=== PATIENT | female | born 1970 | race Two or more races ===

== ENCOUNTER 2017-01-26 15:40 | Inpatient (IN) | payer OTHER ==
[~2017-01-26] VITALS: Ht 157.5 cm; Wt 68.7 kg
[~2017-01-26 15:40] MED LIST: ASPI-496 PO; MECL-76 PO; OMEP-110 PO; RAMI2.5C PO; SULF1TAB24 PO
[2017-01-26 16:22] LABS: HEMATOCRIT 42.8 % (34.6-47.8); HEMOGLOBIN 14.7 g/dL (11.7-16.4); WHITE BLOOD COUNT 12.7 x10^3/uL (3.4-10)
[2017-01-26] MEDS ORDERED: SODIUM CHLORIDE 0.9% 1,000ML IVBOLUS ONE ×2 (16:30→19:00)
[2017-01-26] MEDS ORDERED: SODIUM CHLORIDE FLUSH 10ML SYR IVF ONE (16:30)
[2017-01-26] MEDS ORDERED: ONDANSETRON 2MG/ML, 2ML IVPush ONE (16:30)
[2017-01-26] MEDS ORDERED: MORPHINE SULFATE 4 MG/ML, 1ML IVPush PRN ×2 (16:30→19:00)
[2017-01-26 16:31] LABS: ASPARTATE AMINO TRANSFERASE 22 U/L (15-37); BLOOD UREA NITROGEN 10 mg/dL (7-18)
[2017-01-26] MEDS ORDERED: ONDANSETRON 2MG/ML, 2ML ONE (17:31)
[2017-01-26] MEDS ORDERED: MORPHINE SULFATE 4 MG/ML, 1ML ONE (17:31)
[2017-01-26] MEDS ORDERED: OMNIPAQUE 350 MG/ML, 100ML BOTTLE ONE (18:00)
[2017-01-26] MEDS ORDERED: SODIUM CHLORIDE 0.9% 1,000 ML IV ONE (18:47)
[2017-01-26] MEDS ORDERED: SODIUM CHLORIDE FLUSH 10ML SYR IVF PRN (19:00)
[2017-01-26] MEDS ORDERED: CIPROFLOXACIN/PMX 400MG/200ML 200 ML IV ONE (19:00)
[2017-01-26] MEDS: METRONIDAZOLE PMX 500MG/100ML 100 ML IVPB ONE ×2 (19:00→20:05)
[2017-01-26] MEDS ORDERED: ONDANSETRON 2MG/ML, 2ML IVPush PRN (19:00)
[2017-01-26] MEDS ORDERED: CIPROFLOXACIN/PMX 400MG/200ML 200 ML ONE (19:30)
[2017-01-26] MEDS ORDERED: METRONIDAZOLE PMX 500MG/100ML 100 ML ONE (19:30)
[2017-01-26 20:57] VITALS: BP 129/76
[2017-01-26] MEDS ORDERED: PROMETHAZINE 25 MG/ML, 1ML IM PRN (21:00)
[2017-01-26] MEDS: METRONIDAZOLE PMX 500MG/100ML 100 ML IV SCH (21:00)
[2017-01-26] MEDS: ENOXAPARIN 40 MG/0.4 ML SQ SCH (21:00)
[2017-01-26] MEDS: SODIUM CHLORIDE 0.9% 1,000 ML IV SCH (21:44)
[2017-01-26] MEDS: CEFTRIAXONE PMX 1GM/50ML 50 ML IV SCH (23:35)
[2017-01-27 01:28] VITALS: BP 103/63
[2017-01-27 04:32] LABS: BLOOD UREA NITROGEN 7 mg/dL (7-18)
[2017-01-27 04:36] LABS: ASPARTATE AMINO TRANSFERASE 14 U/L (15-37); HEMOGLOBIN 12.7 g/dL (11.7-16.4); WHITE BLOOD COUNT 11.4 x10^3/uL (3.4-10)
[2017-01-27] MEDS: SODIUM CHLORIDE 0.9% 1,000 ML IV SCH ×2 (06:05→09:56)
[2017-01-27] MEDS: METRONIDAZOLE PMX 500MG/100ML 100 ML IV SCH ×3 (06:05→21:24)
[2017-01-27 08:38] VITALS: BP 108/69
[2017-01-27] MEDS: D5%-0.9% NACL+KCL 20MEQ 1,000 ML IV SCH ×2 (12:30→20:30)
[2017-01-27 14:00] VITALS: BP 104/63
[2017-01-27] MEDS: morphine SULFATE 10 MG/ML, 1ML IVPush PRN ×2 (14:44→21:24)
[2017-01-27 18:45] VITALS: BP 115/67
[2017-01-27] MEDS: ENOXAPARIN 40 MG/0.4 ML SQ SCH (20:45)
[2017-01-27] MEDS: CEFTRIAXONE PMX 1GM/50ML 50 ML IV SCH (22:47)
[2017-01-28] MEDS: D5%-0.9% NACL+KCL 20MEQ 1,000 ML IV SCH ×2 (00:41→11:19)
[2017-01-28] MEDS: ONDANSETRON 2MG/ML, 2ML IVPush PRN (00:47)
[2017-01-28 02:10] VITALS: BP 114/73
[2017-01-28 04:30] LABS: HEMATOCRIT 37.8 % (34.6-47.8); HEMOGLOBIN 12.9 g/dL (11.7-16.4); WHITE BLOOD COUNT 9.1 x10^3/uL (3.4-10)
[2017-01-28 04:37] LABS: BLOOD UREA NITROGEN 5 mg/dL (7-18)
[2017-01-28] MEDS: METRONIDAZOLE PMX 500MG/100ML 100 ML IV SCH ×2 (05:55→17:51)
[2017-01-28 07:10] VITALS: BP 94/56
[2017-01-28] MEDS: morphine SULFATE 10 MG/ML, 1ML IVPush PRN (10:38)
[2017-01-28 16:37] VITALS: BP 139/77
[2017-01-28] MEDS: POTASSIUM PHOSPHATE 22 MEQ in SODIUM CHLORIDE 0.9% 500 ML IV ONE ×2 (17:49→21:45)
[2017-01-28] MEDS: HYDROmorphone 1 MG/ML, 1ML IV PRN ×2 (17:50→21:46)
[2017-01-28 18:06] VITALS: BP 143/77
[2017-01-28 18:45] LABS: IS PT STATUS REG ER OR PRE ER? NO
[2017-01-28] MEDS: ENOXAPARIN 40 MG/0.4 ML SQ SCH (21:46)
[2017-01-28] MEDS: CEFTRIAXONE PMX 1GM/50ML 50 ML IV SCH (23:04)
[2017-01-29] MEDS: METRONIDAZOLE PMX 500MG/100ML 100 ML IV SCH ×3 (01:19→17:31)
[2017-01-29 02:44] VITALS: BP 102/60
[2017-01-29 08:45] VITALS: BP 110/75
[2017-01-29] MEDS: ONDANSETRON 2MG/ML, 2ML IVPush PRN ×2 (08:51→15:44)
[2017-01-29] MEDS ORDERED: D5%-0.9% NACL+KCL 20MEQ 1,000 ML IV SCH (12:30)
[2017-01-29 12:55] VITALS: BP 124/80
[2017-01-29 13:00] VITALS: BP 120/80
[2017-01-29 18:53] VITALS: BP 134/81
[2017-01-29] MEDS: ENOXAPARIN 40 MG/0.4 ML SQ SCH (20:39)
[2017-01-29] MEDS: CEFTRIAXONE PMX 1GM/50ML 50 ML IV SCH (23:21)
[2017-01-30] MEDS: METRONIDAZOLE PMX 500MG/100ML 100 ML IV SCH ×3 (01:24→17:18)
[2017-01-30 01:26] VITALS: BP 98/61
[2017-01-30 05:33] LABS: HEMOGLOBIN 13.9 g/dL (11.7-16.4)
[2017-01-30 05:38] LABS: BLOOD UREA NITROGEN 7 mg/dL (7-18)
[2017-01-30 08:28] VITALS: BP 122/70
[2017-01-30] MEDS ORDERED: POTASSIUM CHLORIDE 20 MEQ TAB.ER.PRT PO ONE (12:00)
[2017-01-30 13:44] VITALS: BP 119/78
[2017-01-30 19:59] VITALS: BP 123/78
[2017-01-30] MEDS: ENOXAPARIN 40 MG/0.4 ML SQ SCH (20:06)
[2017-01-30] MEDS: CEFTRIAXONE PMX 1GM/50ML 50 ML IV SCH (23:06)
[2017-01-31 01:15] VITALS: BP 103/62
[2017-01-31] MEDS: METRONIDAZOLE PMX 500MG/100ML 100 ML IV SCH ×2 (01:59→08:19)
[2017-01-31] MEDS ORDERED: CEFD300C37 PO (08:06)
[2017-01-31] MEDS ORDERED: METR500T PO (08:06)
== END 2017-01-31 10:00 | disposition home or self-care (01) | DRG 392 ==
LOC: ED 18:35 → EDIP 18:47 → 3NW 20:48 → 5SO 01-28 18:29 → DCLOUNGE 01-31 09:45
PROVIDERS: ADMIT Internal Medicine; ATTEND Hospitalist
DX: K57.32 Diverticulitis of large intestine without perforation or abscess without bleeding (principal); E87.2 Acidosis; I11.0 Hypertensive heart disease with heart failure; I42.9 Cardiomyopathy, unspecified; I50.22 Chronic systolic (congestive) heart failure; E87.6 Hypokalemia; F17.210 Nicotine dependence, cigarettes, uncomplicated; F41.9 Anxiety disorder, unspecified; H81.10 Benign paroxysmal vertigo, unspecified ear; Z90.710 Acquired absence of both cervix and uterus; Z90.722 Acquired absence of ovaries, bilateral
CPT/HCPCS: 36415; 74000; 74177; 80048; 80053; 81003; 83605; 83690; 83735; 84100; 84145; 84484; 84703; 85025; 87040; 93005; 96374; 96375; J0696; J0744; J1170; J1650; J2405; Q9967; J2270; J3480; J7030; J7040

== ENCOUNTER 2017-09-19 13:56 | Emergency (ER) | payer OTHER ==
[~2017-09-19] VITALS: Ht 152.4 cm; Wt 70.0 kg
[~2017-09-19 13:56] MED LIST changes: +CEFD300C37 PO; +METR500T PO
[2017-09-19 14:00] VITALS: BP 132/82
[2017-09-19] MEDS ORDERED: DIPH,PERTUSS(ACELL),TET VAC/PF 0.5 ML IM-VACC ONE ×2 (14:30→14:32)
[2017-09-19] MEDS ORDERED: BACITRACIN ZINC OINT 500U/GM, 0.9 GM ONE (15:28)
== END 2017-09-19 16:17 | disposition home or self-care (01) ==
LOC: ED 15:37
DX: S91.331A Puncture wound without foreign body, right foot, initial encounter (principal); W26.8XXA Contact with other sharp object(s), not elsewhere classified, initial encounter; Y93.89 Activity, other specified; Y92.89 Other specified places as the place of occurrence of the external cause; Y99.8 Other external cause status
CPT/HCPCS: 90471; 90715; 99284

== ENCOUNTER 2018-01-04 13:34 | Emergency (ER) | payer MEDICAID ==
[~2018-01-04] VITALS: Ht 157.5 cm; Wt 68.0 kg
[2018-01-04 13:36] VITALS: BP 152/91
[2018-01-04] MEDS ORDERED: DIAZEPAM 5 MG TABLET PO ONE (14:00)
[2018-01-04] MEDS ORDERED: KETOROLAC 30 MG/1 ML IM ONE (14:00)
[2018-01-04] MEDS ORDERED: DIAZEPAM 5 MG TABLET ONE (14:16)
[2018-01-04] MEDS ORDERED: KETOROLAC 30 MG/1 ML ONE (14:16)
== END 2018-01-04 15:58 | disposition home or self-care (01) ==
LOC: ED 15:52
DX: S16.1XXA Strain of muscle, fascia and tendon at neck level, initial encounter (principal); X58.XXXA Exposure to other specified factors, initial encounter; Y93.89 Activity, other specified; Y92.89 Other specified places as the place of occurrence of the external cause; Y99.8 Other external cause status; F17.200 Nicotine dependence, unspecified, uncomplicated; I10 Essential (primary) hypertension
CPT/HCPCS: 72125; 96372; 99284; J1885

== ENCOUNTER 2018-05-17 14:46 | Inpatient (IN) | payer OTHER ==
[~2018-05-17] VITALS: Ht 160 cm; Wt 68.0 kg
[~2018-05-17 14:46] MED LIST changes: -RAMI2.5C PO; +RAMI2.5C2 PO
--- NOTE | 2018-05-17 15:08 | NUR ---
PT IN XRAY
--- NOTE | 2018-05-17 15:23 | NUR ---
PT AMBULATED TO THE BATHROOM WITH STEADY GAIT
[2018-05-17 15:28] LABS: BASOPHILS # (AUTO) 0.03 x10^3/uL (0-0.1); BASOPHILS % (AUTO) 0 % (0-1); EOSINOPHILS # (AUTO) 0.18 x10^3/uL (0-0.4); EOSINOPHILS % (AUTO) 2 % (1-7); LYMPHOCYTES # (AUTO) 3.45 x10^3/uL (1-3.4); LYMPHOCYTES % (AUTO) 46 % (22-44); MD NO; MEAN CORPUSCULAR HEMOGLOBIN 31.7 pg (27.0-34.8); MEAN CORPUSCULAR HGB CONC 34.6 g/dL (32.4-35.8); MEAN CORPUSCULAR VOLUME 91.7 fL (80-100); MEAN PLATELET VOLUME 7.7 fL (7.4-10.4); MONOCYTES # (AUTO) 0.39 x10^3/uL (0.2-0.8); MONOCYTES % (AUTO) 5 % (2-9); NEUTROPHILS % (AUTO) 46 % (42-75); PLATELET COUNT 345 x10^3/uL (130-400); RED BLOOD COUNT 4.73 x10^6/uL (3.82-5.3); RED CELL DISTRIBUTION WIDTH 12.6 % (9.6-15.2)
[2018-05-17 15:41] LABS: ALANINE AMINOTRANSFERASE 39 U/L (12-78); ALBUMIN 3.7 g/dL (3.4-5.0); ANION GAP 5 mmol/L (5-15); CALCIUM 9.4 mg/dL (8.5-10.1); CHLORIDE 104 mmol/L (98-107); CREATININE 0.66 mg/dL (0.55-1.02)
[2018-05-17 15:46] LABS: ALKALINE PHOSPHATASE 119 U/L (45-117); BILIRUBIN,TOTAL 0.4 mg/dL (0.2-1.0); TOTAL PROTEIN 7.3 g/dL (6.4-8.2)
[2018-05-17 15:55] LABS: MICROSCOPIC NOT IND
--- NOTE | 2018-05-17 15:55 | NUR ---
pt's hr in the 40's, obtained ekg. dr hanson notified
[2018-05-17 16:05] LABS: CULTURE INDICATED? NO
[2018-05-17] MEDS ORDERED: KETOROLAC 30 MG/1 ML ONE (16:20)
[2018-05-17] MEDS ORDERED: KETOROLAC 30 MG/1 ML IVPush ONE (16:30)
--- NOTE | 2018-05-17 16:37 | NUR ---
pt medicated for pain
--- NOTE | 2018-05-17 16:45 | NUR ---
PT TO CT
[2018-05-17] MEDS ORDERED: OMNIPAQUE 350 MG/ML, 100ML BOTTLE ONE (16:57)
--- NOTE | 2018-05-17 17:03 | NUR ---
RECEIVED REPORT AND ASSUMED PT. CARE. PT. IS RESTING WITHOUT CONCERNS.
[2018-05-17] MEDS ORDERED: METRONIDAZOLE PMX 500MG/100ML 100 ML IVPB ONE (17:30)
[2018-05-17] MEDS ORDERED: CIPROFLOXACIN/PMX 400MG/200ML 100 ML IVPB ONE (17:30)
[2018-05-17] MEDS ORDERED: SODIUM CHLORIDE FLUSH 10ML SYR IVF PRN (18:00)
--- NOTE | 2018-05-17 18:12 | NUR ---
REPORT WAS CALLED TO ALBERT ROCHA. PT.'S IV ABX ARE INFUSING AT DEPART.
[2018-05-17] MEDS ORDERED: METRONIDAZOLE PMX 500MG/100ML 100 ML ONE (18:17)
[2018-05-17] MEDS ORDERED: CIPROFLOXACIN/PMX 400MG/200ML 200 ML ONE (18:17)
[2018-05-17 19:14] VITALS: BP 121/78
[2018-05-17] MEDS ORDERED: BISACODYL 10 MG SUPP PR PRN (20:30)
[2018-05-17] MEDS ORDERED: LIDODERM 5% PATCH TD PRN (20:30)
[2018-05-17] MEDS: OMEPRAZOLE 20 MG CAPSULE.DR PO SCH (21:33)
[2018-05-17] MEDS: KETOROLAC 30 MG/1 ML IV PRN (21:33)
[2018-05-17] MEDS: ENOXAPARIN 40 MG/0.4 ML SQ SCH (21:37)
[2018-05-17] MEDS: D5%-0.45% NACL 1,000 ML IV SCH (23:00)
[2018-05-18 02:27] VITALS: BP 113/68
[2018-05-18] MEDS: METRONIDAZOLE PMX 500MG/100ML 100 ML IV SCH ×3 (05:21→17:11)
[2018-05-18 06:55] VITALS: BP 92/53
[2018-05-18] MEDS: DOCUSATE 50 MG/5 ML, 10ML UDC PO SCH ×2 (09:31→20:44)
[2018-05-18] MEDS: ASPIRIN 81 MG TABLET CHEW PO SCH (09:31)
[2018-05-18] MEDS: RAMIPRIL 2.5 MG CAPSULE PO SCH (09:31)
[2018-05-18] MEDS: OMEPRAZOLE 20 MG CAPSULE.DR PO SCH ×2 (09:31→20:44)
[2018-05-18] MEDS: MAGNESIUM HYDROXIDE 8%, 30ML UDC PO SCH (09:32)
[2018-05-18] MEDS: CIPROFLOXACIN/PMX 400MG/200ML 200 ML IV SCH ×2 (09:37→20:45)
[2018-05-18] MEDS: D5%-0.45% NACL 1,000 ML IV SCH (09:41)
[2018-05-18] MEDS: ONDANSETRON 2MG/ML, 2ML IVPush PRN ×2 (12:18→20:44)
[2018-05-18 14:33] VITALS: BP 117/78
[2018-05-18] MEDS: KETOROLAC 30 MG/1 ML IV PRN (20:55)
[2018-05-18 21:06] VITALS: BP 142/70
[2018-05-18] MEDS: ENOXAPARIN 40 MG/0.4 ML SQ SCH (21:28)
[2018-05-18] MEDS ORDERED: PROMETHAZINE 25 MG/ML, 1ML IM ONE (22:00)
[2018-05-19] MEDS: METRONIDAZOLE PMX 500MG/100ML 100 ML IV SCH ×4 (00:47→19:17)
[2018-05-19 02:00] VITALS: BP 120/62
[2018-05-19 03:57] VITALS: BP 98/64
[2018-05-19 05:40] LABS: CHLORIDE 110 mmol/L (98-107)
[2018-05-19 05:48] LABS: ALANINE AMINOTRANSFERASE 36 U/L (12-78); ALKALINE PHOSPHATASE 86 U/L (45-117); ANION GAP 9 mmol/L (5-15); BILIRUBIN,TOTAL 0.6 mg/dL (0.2-1.0); CALCIUM 7.6 mg/dL (8.5-10.1); CREATININE 0.73 mg/dL (0.55-1.02); TOTAL PROTEIN 5.9 g/dL (6.4-8.2)
[2018-05-19 05:49] LABS: BASOPHILS # (AUTO) 0.04 x10^3/uL (0-0.1); BASOPHILS % (AUTO) 1 % (0-1); EOSINOPHILS # (AUTO) 0.21 x10^3/uL (0-0.4); EOSINOPHILS % (AUTO) 3 % (1-7); LYMPHOCYTES # (AUTO) 1.28 x10^3/uL (1-3.4); LYMPHOCYTES % (AUTO) 19 % (22-44); MD NO; MEAN CORPUSCULAR HEMOGLOBIN 31.4 pg (27.0-34.8); MEAN CORPUSCULAR HGB CONC 34.6 g/dL (32.4-35.8); MEAN CORPUSCULAR VOLUME 90.8 fL (80-100); MEAN PLATELET VOLUME 7.9 fL (7.4-10.4); MONOCYTES # (AUTO) 0.41 x10^3/uL (0.2-0.8); MONOCYTES % (AUTO) 6 % (2-9); NEUTROPHILS # (AUTO) 4.84 x10^3/uL (1.8-6.8); NEUTROPHILS % (AUTO) 71 % (42-75); PLATELET COUNT 282 x10^3/uL (130-400); RED BLOOD COUNT 4.33 x10^6/uL (3.82-5.3); RED CELL DISTRIBUTION WIDTH 12.6 % (9.6-15.2)
[2018-05-19 07:50] VITALS: BP 92/55
[2018-05-19] MEDS: CIPROFLOXACIN/PMX 400MG/200ML 200 ML IV SCH ×2 (08:24→20:34)
[2018-05-19] MEDS: DOCUSATE 50 MG/5 ML, 10ML UDC PO SCH ×2 (08:26→19:56)
[2018-05-19] MEDS: MAGNESIUM HYDROXIDE 8%, 30ML UDC PO SCH (08:26)
[2018-05-19] MEDS: ASPIRIN 81 MG TABLET CHEW PO SCH (08:26)
[2018-05-19] MEDS: D5%-0.45% NACL 1,000 ML IV SCH ×2 (08:26→19:18)
[2018-05-19] MEDS: OMEPRAZOLE 20 MG CAPSULE.DR PO SCH ×2 (08:26→19:56)
[2018-05-19] MEDS: RAMIPRIL 2.5 MG CAPSULE PO SCH (08:26)
[2018-05-19 12:59] VITALS: BP 124/83
[2018-05-19] MEDS: ONDANSETRON 2MG/ML, 2ML IVPush PRN (15:35)
[2018-05-19 19:07] VITALS: BP 116/74
[2018-05-19] MEDS: ENOXAPARIN 40 MG/0.4 ML SQ SCH (19:56)
[2018-05-20] MEDS: METRONIDAZOLE PMX 500MG/100ML 100 ML IV SCH ×3 (01:30→14:22)
[2018-05-20 02:13] VITALS: BP 104/64
[2018-05-20] MEDS: D5%-0.45% NACL 1,000 ML IV SCH (06:02)
[2018-05-20 07:05] VITALS: BP 107/68
[2018-05-20] MEDS: MAGNESIUM HYDROXIDE 8%, 30ML UDC PO SCH (09:00)
[2018-05-20] MEDS ORDERED: RAMIPRIL 2.5 MG CAPSULE PO SCH (09:00)
[2018-05-20] MEDS: CIPROFLOXACIN/PMX 400MG/200ML 200 ML IV SCH (09:18)
[2018-05-20] MEDS: ASPIRIN 81 MG TABLET CHEW PO SCH (09:19)
[2018-05-20] MEDS: OMEPRAZOLE 20 MG CAPSULE.DR PO SCH (09:19)
[2018-05-20] MEDS: DOCUSATE 50 MG/5 ML, 10ML UDC PO SCH (09:22)
[2018-05-20] MEDS ORDERED: METR-142 PO (14:42)
[2018-05-20] MEDS ORDERED: CIPR250T27 PO (14:42)
[2018-05-20 15:48] VITALS: BP 110/68
== END 2018-05-20 17:20 | disposition home or self-care (01) | DRG 389 ==
LOC: ED 18:24 → EDIP 18:45 → 3NE 18:53
PROVIDERS: ADMIT Hospitalist; ATTEND Hospitalist
DX: K56.0 Paralytic ileus (principal); K57.20 Diverticulitis of large intestine with perforation and abscess without bleeding; I50.22 Chronic systolic (congestive) heart failure; I42.9 Cardiomyopathy, unspecified; F17.210 Nicotine dependence, cigarettes, uncomplicated; H81.10 Benign paroxysmal vertigo, unspecified ear; R00.1 Bradycardia, unspecified; N83.202 Unspecified ovarian cyst, left side; F41.9 Anxiety disorder, unspecified; I11.0 Hypertensive heart disease with heart failure; Z90.710 Acquired absence of both cervix and uterus; Z82.49 Family history of ischemic heart disease and other diseases of the circulatory system; Z79.899 Other long term (current) drug therapy
CPT/HCPCS: 36415; 74021; 74177; 80053; 81003; 83690; 84703; 85025; 93005; 96365; 96375; G0378; J0744; J1650; J1885; J2405; J2550; Q9967

== ENCOUNTER 2019-05-22 00:18 | Observation (INO) | payer MEDICAID, OTHER ==
[~2019-05-22] VITALS: Ht 162.6 cm; Wt 69.8 kg
[~2019-05-22 00:18] MED LIST changes: +CIPR250T27 PO; +METR-90 PO
[2019-05-22 00:57] LABS: BASOPHILS # (AUTO) 0.09 x10^3/uL (0-0.1); BASOPHILS % (AUTO) 1 % (0-1); EOSINOPHILS # (AUTO) 0.15 x10^3/uL (0-0.4); EOSINOPHILS % (AUTO) 2 % (1-7); LYMPHOCYTES % (AUTO) 37 % (22-44); MD NO; MEAN CORPUSCULAR HEMOGLOBIN 31.7 pg (27.0-34.8); MEAN CORPUSCULAR HGB CONC 34.3 g/dL (32.4-35.8); MEAN CORPUSCULAR VOLUME 92.4 fL (80-100); MEAN PLATELET VOLUME 7.7 fL (7.4-10.4); MONOCYTES # (AUTO) 0.44 x10^3/uL (0.2-0.8); MONOCYTES % (AUTO) 5 % (2-9); NEUTROPHILS # (AUTO) 4.66 x10^3/uL (1.8-6.8); NEUTROPHILS % (AUTO) 55 % (42-75); PLATELET COUNT 344 x10^3/uL (130-400); RED BLOOD COUNT 4.55 x10^6/uL (3.82-5.3); RED CELL DISTRIBUTION WIDTH 13.2 % (9.6-15.2)
[2019-05-22] MEDS ORDERED: SODIUM CHLORIDE FLUSH 10ML SYR IVF ONE (01:00)
[2019-05-22] MEDS ORDERED: MORPHINE SULFATE 4 MG/ML, 1ML IVPush PRN (01:00)
[2019-05-22] MEDS ORDERED: ASPIRIN 81 MG TABLET CHEW PO ONE (01:00)
[2019-05-22] MEDS ORDERED: ONDANSETRON 2MG/ML, 2ML IVPush ONE (01:00)
[2019-05-22 01:11] LABS: ANION GAP 9 mmol/L (5-15); CALCIUM 8.4 mg/dL (8.5-10.1); CHLORIDE 107 mmol/L (98-107); CREATININE 0.96 mg/dL (0.55-1.02)
[2019-05-22 01:12] LABS: ALANINE AMINOTRANSFERASE 42 U/L (12-78); ALBUMIN 3.5 g/dL (3.4-5.0)
[2019-05-22 01:16] LABS: ALKALINE PHOSPHATASE 119 U/L (45-117); BILIRUBIN,TOTAL 0.3 mg/dL (0.2-1.0); TROPONIN I < 0.015 ng/mL (0.000-0.045)
[2019-05-22] MEDS ORDERED: MORPHINE SULFATE 4 MG/ML, 1ML ONE (01:20)
[2019-05-22] MEDS ORDERED: ONDANSETRON 2MG/ML, 2ML ONE (01:20)
[2019-05-22] MEDS ORDERED: ASPIRIN 81 MG TABLET CHEW ONE ×2 (01:20→01:22)
[2019-05-22] MEDS ORDERED: NITROGLYCERIN OINT 2%, 1GM TP ONE ×2 (01:39→02:00)
[2019-05-22] MEDS ORDERED: ACETAMINOPHEN 500 MG TABLET ONE (01:40)
[2019-05-22] MEDS ORDERED: ACETAMINOPHEN 500 MG TABLET PO ONE (02:00)
[2019-05-22] MEDS ORDERED: ACETAMINOPHEN 325 MG TABLET PO PRN (02:30)
[2019-05-22] MEDS ORDERED: OXYcodone IR 5MG TABLET PO PRN (02:30)
[2019-05-22] MEDS ORDERED: ONDANSETRON ODT 4 MG PO PRN (02:30)
[2019-05-22] MEDS ORDERED: DOCUSATE 100 MG CAPSULE PO PRN (02:30)
[2019-05-22] MEDS ORDERED: POTASSIUM CHLORIDE 20 MEQ TAB.ER.PRT PO ONE (02:30)
[2019-05-22] MEDS ORDERED: morphine SULFATE 10 MG/ML, 1ML IVPush PRN (02:30)
[2019-05-22] MEDS ORDERED: hydrALAzine 20 MG/ML, 1ML IVPush PRN (02:30)
[2019-05-22] MEDS ORDERED: BISACODYL 10 MG SUPP PR PRN (02:30)
[2019-05-22] MEDS ORDERED: POLYETHYLENE GLYCOL 17 GM PACKET PO PRN (02:30)
[2019-05-22] MEDS ORDERED: NITROGLYCERIN 0.4 MG BOTTLE (25 TABS) SL PRN (02:30)
[2019-05-22] MEDS ORDERED: PROMETHAZINE 25 MG/ML, 1ML IM PRN (02:30)
[2019-05-22] MEDS ORDERED: ONDANSETRON 2MG/ML, 2ML IVPush PRN (02:30)
[2019-05-22] MEDS: SODIUM CHLORIDE 0.9% 1,000 ML IV SCH ×2 (03:08→12:30)
[2019-05-22] MEDS: HEPARIN 5,000 UNITS/ML, 1ML SQ SCH ×2 (03:13→10:30)
[2019-05-22 03:26] VITALS: BP 129/64
[2019-05-22 04:58] LABS: FREE T4 (FREE THYROXINE) 1.09 ng/dL (0.76-1.46); TROPONIN I < 0.015 ng/mL (0.000-0.045)
[2019-05-22] MEDS ORDERED: ASPIRIN 325 MG TABLET EC PO SCH (06:00)
[2019-05-22 07:10] VITALS: BP 111/71
[2019-05-22] MEDS ORDERED: LISINOPRIL 5 MG TABLET PO SCH (09:00)
[2019-05-22 09:48] LABS: CHOLESTEROL, TOTAL 162 mg/dL (140-239); TRIGLYCERIDES 490 mg/dL (50-200); TROPONIN I < 0.015 ng/mL (0.000-0.045)
[2019-05-22 09:49] LABS: HDL CHOL % 14 % (28-40); HDL CHOLESTEROL (DIRECT) 23 mg/dL (40-60)
[2019-05-22] MEDS ORDERED: REGADENOSON 0.4 MG/5 ML SYRINGE ONE (10:55)
[2019-05-22 13:05] VITALS: BP 130/66
[2019-05-22] MEDS ORDERED: ATOR40TA78 PO (17:42)
[2019-05-22] MEDS ORDERED: HYDR50TA13 PO (17:42)
[2019-05-22] MEDS ORDERED: RAMI2.5C2 PO (17:42)
== END 2019-05-22 19:25 | disposition home or self-care (01) ==
LOC: ED 00:48 → INTOOBSV 01:43 → EDIP 01:43 → 5SO 02:35
PROVIDERS: ADMIT Internal Medicine; ATTEND Internal Medicine
DX: R07.9 Chest pain, unspecified (principal); E87.6 Hypokalemia; I16.0 Hypertensive urgency; I42.8 Other cardiomyopathies; F41.9 Anxiety disorder, unspecified; Z79.899 Other long term (current) drug therapy
CPT/HCPCS: 36415; 71045; 78452; 80053; 80061; 83036; 83690; 83735; 84439; 84443; 84484; 85025; 93005; 93017; 93306; 96372; 96374; 96375; G0378; J1644; J2405; J2785; A9502; J2270; J7030

== ENCOUNTER 2019-11-11 22:41 | Emergency (ER) | payer SELFPAY ==
[~2019-11-11] VITALS: Ht 157.5 cm; Wt 72.1 kg
[~2019-11-11 22:41] MED LIST changes: +ATOR40TA78 PO; +HYDR50TA99 PO
[2019-11-11 22:44] VITALS: BP 162/92
[2019-11-11] MEDS ORDERED: PROMETHAZINE/COD. 10MG/6.25MG/5 ML ORAL SOL PO ONE (23:30)
== END 2019-11-12 00:22 | disposition home or self-care (01) ==
LOC: ED 11-12 00:07
DX: R06.00 Dyspnea, unspecified (principal); Z20.828 Contact with and (suspected) exposure to other viral communicable diseases; R94.31 Abnormal electrocardiogram [ECG] [EKG]; I10 Essential (primary) hypertension
CPT/HCPCS: 36415; 71045; 87635; 93005; 99285

== ENCOUNTER 2020-10-18 22:57 | Emergency (ER) | payer SELFPAY ==
[~2020-10-18] VITALS: Ht 157.5 cm; Wt 68.3 kg
[~2020-10-18 22:57] MED LIST changes: -RAMI2.5C2 PO; +RAMI2.5C49 PO; +SULF-23 PO; -SULF1TAB24 PO
[2020-10-18] MEDS ORDERED: ASPIRIN 81 MG TABLET CHEW PO ONE (23:30)
[2020-10-18 23:41] LABS: BASOPHILS % (AUTO) 1 % (0-1); EOSINOPHILS % (AUTO) 2 % (1-7); LYMPHOCYTES % (AUTO) 42 % (22-44); MEAN CORPUSCULAR HEMOGLOBIN 32.5 pg (27.0-34.8); MEAN PLATELET VOLUME 8.2 fL (7.4-10.4); MONOCYTES % (AUTO) 5 % (2-9); NEUTROPHILS % (AUTO) 50 % (42-75); PLATELET COUNT 300 x10^3/uL (130-400); RED CELL DISTRIBUTION WIDTH 13.1 % (9.6-15.2)
[2020-10-18 23:51] LABS: ALANINE AMINOTRANSFERASE 46 U/L (12-78); ALBUMIN 3.7 g/dL (3.4-5.0); ANION GAP 9 mmol/L (5-15); CALCIUM 8.2 mg/dL (8.5-10.1); CHLORIDE 105 mmol/L (98-107); CREATININE 0.78 mg/dL (0.55-1.02)
[2020-10-18 23:55] LABS: ALKALINE PHOSPHATASE 134 U/L (45-117); BILIRUBIN,TOTAL 0.4 mg/dL (0.2-1.0); TOTAL PROTEIN 7.5 g/dL (6.4-8.2); TROPONIN I < 0.015 ng/mL (0.000-0.045)
[2020-10-19] MEDS ORDERED: ASPIRIN 81 MG TABLET CHEW ONE (00:20)
[2020-10-19] MEDS ORDERED: KETOROLAC 60 MG/2 ML ONE (00:41)
[2020-10-19] MEDS ORDERED: KETOROLAC 30 MG/1 ML IM ONE (01:00)
--- NOTE | 2020-10-19 01:27 | NUR ---
REPORT TO PRASANTH ROCHA
[2020-10-19 01:54] LABS: TROPONIN I < 0.015 ng/mL (0.000-0.045)
[2020-10-19] MEDS ORDERED: ACETAMINOPHEN 325 MG TABLET ONE (01:57)
[2020-10-19] MEDS ORDERED: ACETAMINOPHEN 325 MG TABLET PO ONE (02:00)
[2020-10-19 02:03] VITALS: BP 117/90
== END 2020-10-19 02:34 ==
LOC: ED 22:57
DX: R07.89 Other chest pain (principal); I10 Essential (primary) hypertension; F17.200 Nicotine dependence, unspecified, uncomplicated; Z90.710 Acquired absence of both cervix and uterus
CPT/HCPCS: 36415; 71045; 80053; 84484; 85025; 93005; 96372; 99285; J1885